=== PATIENT | male | born 1995 | race Caucasian/White ===

== ENCOUNTER 2023-05-13 21:46 | Emergency (ER) | payer OTHER, SELFPAY ==
[2023-05-13 22:05] VITALS: BP 135/74; PULSE 99; O2SAT 95
[2023-05-13 22:10] VITALS: BP 135/74; PULSE 98; RESP 16; TEMP 36.5; O2SAT 97; BMI 25.2
[2023-05-13 22:30] VITALS: BP 107/55; PULSE 90; O2SAT 96
[2023-05-13 22:47] VITALS: PULSE 90
--- NOTE | 2023-05-13 22:52 | ED.EXTPRO ---
HPI - Extremity Problem General Chief complaint: Extremity Problem,Nontraumatic Stated complaint: post op issues Time Seen by Provider: 05/13/23 22:07 Source: patient Mode of arrival: Ambulatory History of Present Illness HPI Narrative: Patient is a 28-year-old male who underwent a orthopedic right ankle surgery couple days ago. He was follow-up on Thursday. He has been nonweightbearing. He is in a splint. He states that for the past couple days he is had increasing pain and discomfort. He states that his ankle swells and then the swelling improves. He feels like the splint is not fitting well. Related Data Previous Rx's Medication Instructions Recorded oxycodone-acetaminophen 5 mg-325 1 tab PO Q4-6H PRN pain #15 tabs 05/14/23 mg tablet (Percocet) Review of Systems Constitutional Constitutional: Reports system reviewed and no additional complaints, except as documented Musculoskeletal Musculoskeletal: Reports system reviewed and no additional complaints, except as documented Integumentary/Breasts Skin/Breast: Reports system reviewed and no additional complaints, except as documented Neurologic Neurologic: Reports system reviewed and no additional complaints, except as documented Patient History Social History Smoking Status: Current every day smoker Smoking Status: Current every day smoker tobacco type: vaping Substance Use Type: does not use Exam Initial Vital Signs Initial Vital Signs: Vital Signs Pulse Rate 99 H 05/13/23 22:05 Blood Pressure 135/74 05/13/23 22:05 Pulse Oximetry 95 05/13/23 22:05 Oxygen Delivery Method Room Air 05/13/23 22:05 Cardio Pulses: dorsalis pedis present on the right Skin Other: Surgical incision appears well. There was appropriate bruising around the area. No signs of cellulitis. Neuro Sensory Exam: no sensory deficits noted Extrem Other: Surgical incision lateral right ankle appears well. Procedures Orthopedic Splinting/Casting Injury #1: Side: right Lower Extremity Injury Location: ankle Lower Extremity Immobilizer: posterior splint and stirrup splint Post splinting neuro exam: intact Post splinting vascular exam: intact Placed by: Provider Course Orders Ordered: Discontinued Medications Oxycodone/Acetaminophen (Oxycodone/Apap 5/325 Prepack) 1 bottle MISC SEEINSTR ONE Stop: 05/14/23 00:03 Last Admin: 05/14/23 00:08 Dose: 1 bottle Vital Signs Vital signs: Vital Signs - 8 hr 05/13/23 22:10 05/13/23 22:47 05/13/23 22:05 Temperature 97.7 F Pulse Rate 98 H Pulse Rate [Right Dorsalis Pedis] 90 Respiratory Rate 16 Blood Pressure 135/74 135/74 Pulse Oximetry 97 Oxygen Delivery Method Room Air 05/13/23 22:05 05/13/23 22:30 05/13/23 22:30 Temperature Pulse Rate 99 H 90 Pulse Rate [Right Dorsalis Pedis] Respiratory Rate Blood Pressure 107/55 L Pulse Oximetry 95 96 Oxygen Delivery Method Room Air Room Air MDM - Extremity (Nontraumatic) MDM Narrative Medical decision making narrative: Patient's right extremity appears appropriate at this stage and he is healing. There is no signs compartment syndrome. No signs of infection. The surgical splint was removed and a new splint was replaced. I will refill his pain medication. Advised that he contact his operative provider for follow-up. Discharge Plan Departure Patient Disposition: Home Clinical Impression: Post-operative pain Instructions: How to Take Care of Your Splint Activity Restrictions/Additional Instructions: I recommend you follow all of the postoperative instructions given to you by the orthopedic surgeon. I do recommend that you contact them tomorrow in the office opens. Return to the emergency department for new symptoms. Prescriptions: New oxycodone-acetaminophen [Percocet] 5-325 mg tablet 1 tab PO Q4-6H PRN (Reason: pain) Qty: 15 0RF Stand Alone Forms: Patient Portal/API
[2023-05-13 23:00] VITALS: PULSE 89; O2SAT 96
[2023-05-13 23:30] VITALS: PULSE 88; O2SAT 97
[2023-05-14] MEDS: OXYCODONE/APAP 5/325 PREPACK 1 BOTTLE MISC (00:08)
[2023-05-14 00:11] VITALS: BP 114/69; PULSE 88; O2SAT 96
== END 2023-05-14 00:16 | disposition home or self-care (01) ==
PROVIDERS: Emergency Provider Emergency Medicine
DX: G89.18 Other acute postprocedural pain (principal)
CPT/HCPCS: 99281